=== PATIENT | female | born 1980 | race Caucasian/White ===

== ENCOUNTER 2020-04-02 18:02 | Emergency (ER) | payer SELFPAY ==
--- NOTE | 2020-04-02 19:39 | EDM.PDOC ---
ED HPI GENERAL MEDICAL PROBLEM - General Chief Complaint: Skin Complaint Stated Complaint: SPIDER BITE RT LEG Time Seen by Provider: 04/02/20 19:13 - History of Present Illness INITIAL COMMENTS - FREE TEXT/NARRATIVE: 39yoF with h/o HTN presents with worsening pain on the right mid agudelo. She first notice a "white head" or bug bite 2 days ago. She attempted to pop it and expressed a small amount of fluid. Since that time she has had worsening redness and pain. Fevers or chills, pain is focused in the right agudelo and is minimal to moderate she has been applying neomycin ointment as well. Symptoms worsen with direct pressure. right leg Pain Score (Numeric/FACES): 8 - Related Data Allergies Allergy/AdvReac Type Severity Reaction Status Date / Time No Known Allergies Allergy Verified 04/02/20 19:26 Home Meds: Home Meds Clindamycin HCl 450 mg PO TID #90 capsule 04/02/20 [Rx] Losartan [Cozaar] 20 mg PO DAILY 04/02/20 [History] ED ROS GENERAL - Review of Systems Review Of Systems: See Below Free Text/Narrative/Comment: General: No fever. Skin: Per HPI Respiratory: No shortness of breath. Cardiac: No chest pain. Gastrointestinal: No nausea, vomiting or abdominal pain. Musculoskeletal: Per HPI Neurologic: No headache. ED EXAM, SKIN/RASH Exam: See Below Text/Narrative:: General Appearance: No acute distress, appears comfortable Skin: On the right mid anterior agudelo there is a intense red erythema that surrounds a central area of very small necrosis there is no focal fluctuance no clinical sign of abscess no lymphangitic streaking there is some vesicular assembler for puller over machine the top of the redness total area of redness approximately 4 cm in diameter no tenderness swelling deformity in the ankle of the foot HEENT: Normocephalic/atraumatic, sclera anicteric, mucous membranes moist Neck: Normal range of motion Musculoskeletal: No focal tenderness or swelling in the right ankle of the right knee Psychiatric: Appropriate, cooperative Course - Vital Signs Last Recorded V/S: Last Vital Signs Temp 97.8 F 04/02/20 19:29 Pulse 106 H 04/02/20 19:29 Resp 18 04/02/20 19:29 BP 137/93 H 04/02/20 19:29 Pulse Ox 98 08/14/20 19:29 Departure - Departure Time of Disposition: 19:39 Disposition: Home, Self-Care 01 Condition: Good Clinical Impression: Cellulitis - Discharge Information *PRESCRIPTION DRUG MONITORING PROGRAM REVIEWED*: Not Applicable *COPY OF PRESCRIPTION DRUG MONITORING REPORT IN PATIENT JOHANNE: Not Applicable Prescriptions: Clindamycin HCl 450 mg PO TID #90 capsule Instructions: Cellulitis, Adult Forms: ED Department Discharge Additional Instructions: Please follow-up with your primary care doctor next week to ensure that the area is healing well. If you notice any worsening swelling drainage or worsening pain or worsening discoloration of the area please return to the emergency department for another evaluation. At this point there is no sign of any abscess or pocket of pus that requires drainage however it is important is to keep an eye on the area as that could change. If you develop fevers or chills or any other symptoms that are new or concern you please return to the emergency department. The following information is given to patients seen in the emergency department who are being discharged to home. This information is to outline your options for follow-up care. We provide all patients seen in our emergency department with a follow-up referral. The need for follow-up, as well as the timing and circumstances, are variable depending upon the specifics of your emergency department visit. If you don't have a primary care physician on staff, we will provide you with a referral. We always advise you to contact your personal physician following an emergency department visit to inform them of the circumstance of the visit and for follow-up with them and/or the need for any referrals to a consulting specialist. The emergency department will also refer you to a specialist when appropriate. This referral assures that you have the opportunity for follow-up care with a specialist. All of these measure are taken in an effort to provide you with optimal care, which includes your follow-up. Under all circumstances we always encourage you to contact your private physician who remains a resource for coordinating your care. When calling for follow-up care, please make the office aware that this follow-up is from your recent emergency room visit. If for any reason you are refused follow-up, please contact the [facility] Emergency Department at and asked to speak to the emergency department charge nurse. Sepsis Event Note (ED) - Evaluation Sepsis Screening Result: No Definite Risk - Focused Exam Vital Signs: Vital Signs Temp Pulse Resp BP Pulse Ox 04/02/20 19:29 97.8 F 106 H 18 137/93 H 98 - Assessment/Plan Plan: 39-year-old female without secondary signs of systemic infection presenting with right mid agudelo discomfort likely secondary to pustule which she ruptured h erself versus spider bite given the central area of small necrosis. No signs of lymphangitic streaking no clinical signs of sepsis no recall of spider bite or snakebite. No evidence of drainable abscess at this time but given overlying redness will start on Bactrim Keflex. I also suspect potential for neomycin allergy given intense redness and overlying vesicles. Patient was recommended to stop doing neomycin and switch to bacitracin or other non-neomycin product. Strict return precautions were discussed and understood regarding returning for worsening swelling drainage or signs of abscess formation.
== END 2020-04-02 19:50 | disposition home or self-care (01) ==
LOC: MW.ED 18:02
DX: L03.115 Cellulitis of right lower limb (principal); Z79.899 Other long term (current) drug therapy
CPT/HCPCS: 99283

== ENCOUNTER 2021-04-20 02:53 | Emergency (ER) | payer SELFPAY ==
[2021-04-20] MEDS ORDERED: Ciprofloxacin/Dexamethasone 0.3-0.1% Otic Susp 7.5 ML Bottle EARRT STA (03:06)
--- NOTE | 2021-04-20 03:12 | EDM.PDOC ---
ED HPI GENERAL MEDICAL PROBLEM - General Chief Complaint: ENT Problem Stated Complaint: RIGHT EAR PAIN Time Seen by Provider: 04/20/21 02:54 - History of Present Illness INITIAL COMMENTS - FREE TEXT/NARRATIVE: 40-year-old female no significant past medical history presenting with 2 days of gradually worsening right ear pain that is now severe. Patient states that she uses Q-tips infection scratch something and has not an infection. Some pain radiates around the ear but no fevers no neck pain or stiffness no sore throat no difficulty breathing or swallowing. Right Ear Pain Score (Numeric/FACES): 10 - Related Data Allergies Allergy/AdvReac Type Severity Reaction Status Date / Time No Known Allergies Allergy Verified 04/20/21 03:06 Home Meds: Home Meds Losartan [Cozaar] 20 mg PO DAILY 04/02/20 [History] Past Medical History HEENT History: Reports: None Cardiovascular History: Reports: Hypertension Respiratory History: Reports: None Gastrointestinal History: Reports: None Genitourinary History: Reports: None GUIDANCE SERVICES COORDINATOR History: Reports: None Musculoskeletal History: Reports: None Neurological History: Reports: None Psychiatric History: Reports: None Endocrine/Metabolic History: Reports: None Insulin Pump Model and In Flight Refueling Craftsman: None Hematologic History: Reports: None Immunologic History: Reports: None Oncologic (Cancer) History: Reports: None Dermatologic History: Reports: None - Infectious Disease History Infectious Disease History: Reports: None - Past Surgical History Head Surgeries/Procedures: Reports: None Social & Family History - Family History Family Medical History: No Pertinent Family History - Tobacco Use Second Hand Smoke Exposure: No - Caffeine Use Caffeine Use: Reports: None - Recreational Drug Use Recreational Drug Use: No ED ROS GENERAL - Review of Systems Review Of Systems: See Below Free Text/Narrative/Comment: General: No fever. Skin: No rash. Eyes: No vision problems. ENT: Per HPI Neck: No neck stiffness. Respiratory: No shortness of breath. Cardiac: No chest pain. Gastrointestinal: No nausea, vomiting or abdominal pain. Musculoskeletal: No myalgias/arthralgias. Neurologic: No headache. ED EXAM, GENERAL - Physical Exam Exam: See Below Free Text/Narrative:: General Appearance: No acute distress, appears comfortable Skin: No rash HEENT: Normocephalic/atraumatic, sclera anicteric, mucous membranes moist, right ear canal is edematous there is a white exudate coming from it there is no mastoid tenderness the auricle is not pushed forward there is no crepitus of the auricle Neck: Normal range of motion Chest and Lungs: Bilateral breath sounds, clear to auscultation Cardiovascular: Regular rate and rhythm, no murmur Abdomen: Soft, non-tender Back: Normal Musculoskeletal: No edema or tenderness Neurologic: Awake, alert, no obvious deficits, moving all extremities Psychiatric: Appropriate, cooperative Course - Vital Signs Last Recorded V/S: Last Vital Signs Temp 98.1 F 04/20/21 03:02 Pulse 98 04/20/21 03:02 Resp 20 04/20/21 03:02 BP 151/90 H 04/20/21 03:02 Pulse Ox 98 04/20/21 03:02 - Orders/Labs/Meds Meds: Medications Discontinued Medications Generic Name Dose Route Start Last Admin Trade Name Meaghan PRN Reason Stop Dose Admin Hydrocodone Bitart/Acetaminophen 1 tab 04/20/21 03:13 Acetaminophen/Hydrocodone 325-5 Mg Tab PO 04/20/21 03:14 ONETIME ONE Ciprofloxacin/Dexamethasone 1 ml 04/20/21 03:06 04/20/21 03:22 Ciprofloxacin/Dexamethasone 0.3-0.1% Otic Susp 7.5 Ml Bottle EARRT 04/20/21 03:07 1 applic NOW STA Administration Departure - Departure Time of Disposition: 03:27 Disposition: Home, Self-Care 01 Condition: Good Clinical Impression: Otitis externa - Discharge Information *PRESCRIPTION DRUG MONITORING PROGRAM REVIEWED*: Not Applicable *COPY OF PRESCRIPTION DRUG MONITORING REPORT IN PATIENT JOHANNE: Not Applicable Instructions: Otitis Externa, [id number] Referrals: PCP,None [Primary Care Provider] - Forms: ED Department Discharge Additional Instructions: Your ear pain is due to an infection in your external auditory canal. A foam wick has been placed in the canal to continuous dryout operator helper the medication and getting all the way to the back of your ear. This can be removed in 2 days. Please be sure to use the antibiotic as discussed. If your symptoms worsen or you have any other new symptoms that concern you please call your doctor or return to the ER. Please do 4 drops of the antibiotic into your right ear twice a day for the next 7 days. 3 days from now please remove the foam ear wick that was placed this evening. The following information is given to patients seen in the emergency department who are being discharged to home. This information is to outline your options for follow-up care. We provide all patients seen in our emergency department with a follow-up referral. The need for follow-up, as well as the timing and circumstances, are variable depending upon the specifics of your emergency department visit. If you don't have a primary care physician on staff, we will provide you with a referral. We always advise you to contact your personal physician following an emergency department visit to inform them of the circumstance of the visit and for follow-up with them and/or the need for any referrals to a consulting specialist. The emergency department will also refer you to a specialist when appropriate. This referral assures that you have the opportunity for follow-up care with a specialist. All of these measure are taken in an effort to provide you with optimal care, which includes your follow-up. Under all circumstances we always encourage you to contact your private physician who remains a resource for coordinating your care. When calling for follow-up care, please make the office aware that this follow-up is from your recent emergency room visit. If for any reason you are refused follow-up, please contact the [facility] Emergency Department at and asked to speak to the emergency department charge nurse. Sepsis Event Note (ED) - Evaluation Sepsis Screening Result: No Definite Risk - Focused Exam Vital Signs: Vital Signs Temp Pulse Resp BP Pulse Ox 04/20/21 03:02 98.1 F 98 20 151/90 H 98 - Assessment/Plan Assessment:: 40-year-old female presenting with right-sided acute otitis externa. Patient is not a diabetic there is no sign of mastoiditis she is nontoxic in appearance she is not driving home [place] given for pain here x1 investigating to see if we have Ciprodex. 0400: We did in fact have Ciprodex. Patient was laying on her left side and ear wick was gently inserted into the external auditory canal being careful not to contact the tympanic membrane. 4 drops of Ciprodex were then placed into the external auditory canal this led to appropriate swelling of the ear wick and an improvement in the patient's symptoms. Strict return precautions were discussed and understood the need to remove the ear work in 2 to 3 days was discussed and understood.
[2021-04-20] MEDS ORDERED: Acetaminophen/HYDROcodone 325-5 MG Tab PO ONE (03:13)
== END 2021-04-20 03:33 | disposition home or self-care (01) ==
LOC: MW.ED 02:53
DX: H60.91 Unspecified otitis externa, right ear (principal); I10 Essential (primary) hypertension; Z79.899 Other long term (current) drug therapy
CPT/HCPCS: 99282; A9270

== ENCOUNTER 2022-06-05 01:36 | Emergency (ER) | payer SELFPAY ==
[2022-06-05] MEDS ORDERED: Sodium Chloride 0.9% 1,000 ML IV ONE (02:08)
[2022-06-05] MEDS ORDERED: Ketorolac 30 MG/ML SDV IVPUSH ONE (02:08)
[2022-06-05] MEDS ORDERED: Ondansetron 4 MG/2 ML SDV IVPUSH ONE (02:08)
[2022-06-05] MEDS ORDERED: Sodium Chloride 0.9% 10 ML Syringe FLUSH PRN (02:08)
[2022-06-05] MEDS ORDERED: Sodium Chloride 0.9% 2.5 ML Syringe FLUSH PRN (02:08)
[2022-06-05] MEDS ORDERED: Pantoprazole 40 MG in Sodium Chloride 0.9% 10 ML IVPUSH ONE (02:10)
[2022-06-05 02:49] LABS: CARBON DIOXIDE,CO2 29.8 mmol/L (21.0-32.0); POTASSIUM,K 3.6 mmol/L (3.5-5.1)
[2022-06-05] MEDS ORDERED: Iopamidol 755 Mg/ML 100 ML Bottle IVPUSH ONE (03:34)
== END 2022-06-05 06:05 | disposition home or self-care (01) ==
LOC: MW.ED 01:36
DX: R10.13 Epigastric pain (principal); I10 Essential (primary) hypertension; Z79.899 Other long term (current) drug therapy
CPT/HCPCS: 36415; 74177; 80053; 83690; 84703; 85025; 96361; 96374; 96375; 99284; C9113; J1885; J2405; J3490; J7030; Q9967

== ENCOUNTER 2022-07-16 08:01 | Emergency (ER) | payer SELFPAY ==
[2022-07-16] MEDS ORDERED: Sodium Chloride 0.9% 10 ML Syringe FLUSH PRN (08:05)
[2022-07-16] MEDS ORDERED: Sodium Chloride 0.9% 1,000 ML IV ONE (08:05)
[2022-07-16] MEDS ORDERED: Sodium Chloride 0.9% 2.5 ML Syringe FLUSH PRN (08:05)
[2022-07-16] MEDS ORDERED: Ondansetron 4 MG/2 ML SDV IVPUSH ONE (08:06)
[2022-07-16] MEDS ORDERED: Naloxone 0.4 MG/ML SDV IVPUSH ONE ×2 (08:06→09:52)
[2022-07-16 08:41] LABS: POTASSIUM,K 4.2 mmol/L (3.5-5.1)
== END 2022-07-16 12:21 | disposition home or self-care (01) ==
LOC: MW.ED 08:01
DX: T40.411A Poisoning by fentanyl or fentanyl analogs, accidental (unintentional), initial encounter (principal); F11.99 Opioid use, unspecified with unspecified opioid-induced disorder; I10 Essential (primary) hypertension; Z79.899 Other long term (current) drug therapy
CPT/HCPCS: 36415; 71045; 80053; 80307; 84703; 85025; 96361; 96374; 96375; 96376; 99284; J2310; J2405; J3490; J7030

== ENCOUNTER 2023-08-27 11:31 | Emergency (ER) | payer SELFPAY | END 2023-08-27 13:08 | disposition home or self-care (01) | LOC: MW.ED 11:31 | DX: I10 Essential (primary) hypertension (principal) | CPT/HCPCS: 99283 ==

== ENCOUNTER 2024-04-06 17:36 | Emergency (ER) | payer SELFPAY | END 2024-04-06 18:17 | disposition left against medical advice (07) | LOC: MW.ED 17:36 | DX: Z53.21 Procedure and treatment not carried out due to patient leaving prior to being seen by health care provider (principal) ==